=== PATIENT | male | born 1955 | race African-American/Black ===

== ENCOUNTER 2017-04-06 16:20 | Emergency (ER) | payer MEDICARE, MEDICAID ==
[~2017-04-06] VITALS: Ht 170.2 cm; Wt 53.1 kg
[~2017-04-06 16:20] MED LIST: AMLO2.5T PO; CINA30TA PO; CLON0.1T14 PO; CLON0.5T PO; FOLI0.8T23 PO; FOLI1TAB94 PO; PROT946L PO; SEVE800T PO; TAMS-12 PO
--- NOTE | 2017-04-06 16:25 | NUR ---
PT BIB [facility] C/O DIFFUSE PERIUMBILICAL ABD SEVERE PAIN AND DISTENSION TODAY. ABD TENDER TO PALP. PT REPORTS HE THINKS HE NEEDS TO "GET IT DRAINED". RESP APPEARS EVEN UNLABORED, 99% ON RA, HOWEVER PT STATES HE FEELS SHORT OF BREATH. VSS. SKIN WARM NONDIAPHORETIC. DENIES N/V/D. IN ER BED 10.
[2017-04-06 16:43] LABS: BASOPHILS % (AUTO) 0.5 % (0.0-2.0); EOSINOPHILS # (AUTO) 0.1 /CMM (0.0-0.7); EOSINOPHILS % (AUTO) 3.1 % (0.0-6.0); HEMATOCRIT 32 % (39-51); HEMOGLOBIN 10.4 g/dL (13.5-17.5); LYMPHOCYTES # (AUTO) 1.1 /CMM (0.8-4.8); LYMPHOCYTES % (AUTO) 31.3 % (20.0-44.0); MEAN CORPUSCULAR HEMOGLOBIN 31 PG (26.0-33.0); MEAN CORPUSCULAR HGB CONC 32 g/dl (31.0-36.0); MEAN CORPUSCULAR VOLUME 96 fL (80-96); MONOCYTES # (AUTO) 0.4 /CMM (0.1-1.30); MONOCYTES % (AUTO) 11.5 % (2.0-12.0); NEUTROPHILS % (AUTO) 53.6 % (43.0-81.0); PLATELET COUNT (AUTO) 84 /CMM (150-450); RDW COEFFICIENT OF VARIATION 20.1 (11.5-15.0); RED BLOOD CELL COUNT(AUTO) 3.37 MIL/uL (4.5-6.0); WHITE BLOOD COUNT (AUTO) 3.6 K/uL (4.3-11.0)
[2017-04-06 17:05] LABS: INR 1.18 (0.87-1.13); PROTHROMBIN TIME 12.4 SECS (9.5-12.7)
[2017-04-06 17:11] LABS: ALBUMIN 3.2 g/dL (3.4-5.0); BILIRUBIN,DIRECT 0.2 mg/dL (0.0-0.2); BILIRUBIN,TOTAL 0.7 mg/dL (0.2-1.0); CALCIUM, SERUM 8.9 mg/dL (8.5-10.1); CREATININE 4.6 mg/dL (0.6-1.3); POTASSIUM 4.3 mmol/L (3.5-5.1); TOTAL PROTEIN, SERUM 7.6 g/dL (6.4-8.2)
[2017-04-06 17:25] LABS: EOSINOPHILS % (MANUAL) 4 % (0-4); LYMPHOCYTES % (MANUAL) 34 % (16-48); MONOCYTES % (MANUAL) 9 % (0-11.0); NEUTROPHILS % (MANUAL) 53 (42-76)
[2017-04-06] MEDS ORDERED: ONDANSETRON 4 MG TAB.RAPDIS SL ONE (17:30)
[2017-04-06] MEDS ORDERED: MORPHINE SULFATE INJ 4 MG/ML DISP.SYRIN ONE ×2 (17:30→19:10)
[2017-04-06] MEDS ORDERED: ONDANSETRON 4 MG TAB.RAPDIS ONE (17:30)
[2017-04-06] MEDS ORDERED: MORPHINE SULFATE INJ 2 MG/ML DISP.SYRIN IM ONE ×2 (17:30→19:00)
--- NOTE | 2017-04-06 18:16 | NUR ---
RESTING QUIETLY, NAD NOTED. REPORT GIVEN TO ESTELA SERNA FOR AGUSTIN
[2017-04-06] MEDS ORDERED: DEXT15DR6 EACHEYE (18:58)
--- NOTE | 2017-04-06 19:30 | NUR ---
Patient discharged to home in stable condition. Written and verbal after care instructions given. Patient verbalizes understanding of instruction. IV removed. Catheter intact and site benign. Pressure and 4x4 applied to site. No bleeding noted. nad noted upon discharge, will follow up with pmd
[2017-04-06 19:31] VITALS: BP 145/92
== END 2017-04-06 19:31 | disposition home or self-care (01) ==
LOC: ER 16:24
DX: I12.0 Hypertensive chronic kidney disease with stage 5 chronic kidney disease or end stage renal disease (principal); N18.6 End stage renal disease; E11.22 Type 2 diabetes mellitus with diabetic chronic kidney disease; D61.818 Other pancytopenia; R16.0 Hepatomegaly, not elsewhere classified; R18.8 Other ascites; R60.9 Edema, unspecified; I50.9 Heart failure, unspecified; I48.91 Unspecified atrial fibrillation; I05.0 Rheumatic mitral stenosis; Z99.2 Dependence on renal dialysis; J44.9 Chronic obstructive pulmonary disease, unspecified; B19.20 Unspecified viral hepatitis C without hepatic coma; D64.9 Anemia, unspecified; Z94.0 Kidney transplant status; Z90.49 Acquired absence of other specified parts of digestive tract
CPT/HCPCS: 36415; 80048-TC; 80076-TC; 83690-TC; 85025-TC; 85730-TC; A4606; J2270; Q0162; Z7610

== ENCOUNTER 2017-07-10 11:22 | Inpatient (IN) | payer MEDICARE, MEDICAID ==
[~2017-07-10] VITALS: Ht 162.6 cm; Wt 49.4 kg
[2017-07-10] VITALS (15 sets, daily range): BP systolic 58–182; BP diastolic 26–146
[~2017-07-10 11:22] MED LIST changes: +DEXT15DR6 EACHEYE
--- NOTE | 2017-07-10 11:50 | NUR ---
PATIENT PRESENTS TO ER STATING HE DOESNT FEEL WELL, UNABLE TO FINISH HD. PATIENT IS A/OX 4. BREATHING EVEN AND UNLABORED. NO SOB. BP ELEVATED UPON TRIAGE. SAFETY AND COMFORT MEASURES IN PLACE. AWAITING MD ORDERS.
--- NOTE | 2017-07-10 12:00 | NUR ---
NEW IV STARTED ON RAC, 18 G. BLOOD DRAWN AND SENT TO LAB.
[2017-07-10 12:09] LABS: BASOPHILS % (AUTO) 0.6 % (0.0-2.0); EOSINOPHILS # (AUTO) 0.2 /CMM (0.0-0.7); EOSINOPHILS % (AUTO) 5.1 % (0.0-6.0); HEMATOCRIT 30 % (39-51); HEMOGLOBIN 9.7 g/dL (13.5-17.5); LYMPHOCYTES % (AUTO) 24.3 % (20.0-44.0); MEAN CORPUSCULAR HEMOGLOBIN 28 PG (26.0-33.0); MEAN CORPUSCULAR HGB CONC 32 g/dl (31.0-36.0); MEAN CORPUSCULAR VOLUME 87 fL (80-96); MONOCYTES # (AUTO) 0.4 /CMM (0.1-1.30); MONOCYTES % (AUTO) 9.6 % (2.0-12.0); NEUTROPHILS # (AUTO) 2.4 /CMM (1.8-8.9); NEUTROPHILS % (AUTO) 60.4 % (43.0-81.0); PLATELET COUNT (AUTO) 119 /CMM (150-450); RDW COEFFICIENT OF VARIATION 17.4 (11.5-15.0); RED BLOOD CELL COUNT(AUTO) 3.44 MIL/uL (4.5-6.0)
[2017-07-10 12:18] LABS: CALCIUM, SERUM 9.9 mg/dL (8.5-10.1); POTASSIUM 5.1 mmol/L (3.5-5.1)
[2017-07-10 12:22] LABS: INR 1.25 (0.87-1.13); PROTHROMBIN TIME 13.1 SECS (9.5-12.7)
[2017-07-10 12:24] LABS: ALBUMIN 2.9 g/dL (3.4-5.0); BILIRUBIN,DIRECT 0.3 mg/dL (0.0-0.2); BILIRUBIN,TOTAL 0.7 mg/dL (0.2-1.0); TOTAL PROTEIN, SERUM 7.5 g/dL (6.4-8.2)
[2017-07-10 12:26] LABS: TROPONIN I 0.112 ng/mL (0.00-0.056)
--- NOTE | 2017-07-10 12:32 | NUR ---
PATIENT DOES NOT PRODUCE URINE D/T CKD/HD. INFORMED UNABLE TO OBTAINED URINALYSIS.
[2017-07-10 12:42] LABS: PARTIAL THROMBOPLASTIN TIME > 170 SEC (23-34)
--- NOTE | 2017-07-10 12:46 | NUR ---
CALLED [facility], PAGED DR BARRIENTOS, ON THE PHONE WITH DR. MCGHEE.
[2017-07-10] MEDS ORDERED: ASPIRIN 325 MG TABLET ONE (12:58)
[2017-07-10] MEDS ORDERED: ASPIRIN 325 MG TABLET PO ONE (13:00)
--- NOTE | 2017-07-10 13:03 | NUR ---
ICU 261
[2017-07-10] MEDS ORDERED: GABA-532 PO (13:04)
[2017-07-10] MEDS ORDERED: AMLO10TA2 PO (13:04)
[2017-07-10] MEDS ORDERED: PRAV10TA40 PO (13:04)
[2017-07-10] MEDS ORDERED: CARV3.122 PO (13:04)
[2017-07-10] MEDS ORDERED: CINA90TA PO (13:04)
[2017-07-10] MEDS ORDERED: NITROGLYCERIN 0.4 MG/TAB BOTTLE SL PRN (13:30)
[2017-07-10] MEDS ORDERED: HEPARIN INFUSION/D5W 500 ML IV PRN (13:30)
[2017-07-10] MEDS ORDERED: DOCUSATE SODIUM 100 MG CAPSULE PO PRN (13:30)
[2017-07-10] MEDS ORDERED: MORPHINE SULFATE INJ 2 MG/ML DISP.SYRIN IV PRN (13:30)
[2017-07-10] MEDS ORDERED: METOPROLOL TARTRATE 25 MG TABLET PO SCH (13:30)
[2017-07-10] MEDS ORDERED: LORAZEPAM 1 MG TABLET PO PRN (13:30)
[2017-07-10] MEDS ORDERED: MORPHINE SULFATE INJ 4 MG/ML DISP.SYRIN IV PRN (14:00)
[2017-07-10] MEDS ORDERED: CINACALCET HCL 30 MG TABLET PO SCH (14:00)
--- NOTE | 2017-07-10 14:06 | NUR ---
REPORT GIVEN TO RN, JOSE FOR ADMISSION.
[2017-07-10 14:29] LABS: IRON, SERUM 71 ug/dl (50-175); TOTAL IRON BINDING CAPACITY 191 ug/dl (250-450)
--- NOTE | 2017-07-10 14:34 | NUR ---
PATIENT TRANSPORTED TO [facility] [place][note 3] VIA ACLS PROTOCOL. RNSAJI TO PROVIDE AGUSTIN.
--- NOTE | 2017-07-10 14:40 | NUR ---
ICU/RN: PT RECEIVED A&OX4, ANXIOUS, BREATHING EVEN AND UNLABORED, NO FACIAL GRIMACING, COOPERATIVE, HOWEVER STATES "I CAN'T BREATHE, CAN YOU GIVE ME SOMETHING TO RELAX AND FOR PAIN?" PT DENIES CP, C/O 8/10 POSTERIOR NECK PAIN AND STATES "I WANT MORPHINE, THAT'S WHAT I TAKE WHENEVER IM IN THE HOSPITAL." ALTERNATIVE PAIN MANAGEMENT MEASURES PROVIDED AND EDUCATION GIVEN. PT PRESENTS WITH OLD LFA AV SHUNT; R FA #18 HL FLUSHED PATENT AND INTACT, R CW HD CATH, DRESSING C/D/I. SCABS NOTED ON BILAT LOWER EXT. ORIENTED PT TO UNIT, VERBALIZED UNDERSTANDING. WILL CONT TO MONITOR PT.
--- NOTE | 2017-07-10 15:11 | NUR ---
I TEXTED DR ESCOBEDO REGARDING HEPARIN ORDERS WITH PTT > 170 SECS ON ADMIT, PLATELET COUNT 119 AND HGB 9 AND NO CHEST PAIN WITH VERY MINIMAL TROP BUMP WITH CC "I WANT MORPHINE TO RELAX, AND NOTHING ELSE"
--- NOTE | 2017-07-10 15:28 | NUR ---
WILL RECHECK PTT AND TROP AT 1700 AND START HEPARIN BASED ON PTT RESULT
[2017-07-10] MEDS ORDERED: ACETAMINOPHEN 325 MG TABLET PO PRN (15:30)
[2017-07-10] MEDS ORDERED: SEVELAMER CARBONATE 800 MG TABLET PO SCH (18:00)
--- NOTE | 2017-07-10 18:00 | NUR ---
ICU/RN: ASSISTED PT WITH DINNER, ADAMANT TO SIT AT EDGE OF BED FOR MEAL, HOWEVER PT C/O SOB WITH EXERTION. REFUSES TO WEAR PULSE OX. EDUCATED ON PROTOCOL BUT AGREES ONLY TO HAVE PULSE OX "JUST REAL QUICK TO SEE HOW WELL IM DOING THEN TAKE IT OFF." O2 SAT AT 100% ON 2L/MIN VIA NC. ASSISTED BACK TO BED. PER PT, "I'LL JUST FINISH MY DINNER LATER."
[2017-07-10] MEDS ORDERED: HEPARIN SODIUM, PORCINE 5000 UNITS/1 ML VIAL IV ONE (18:30)
--- NOTE | 2017-07-10 19:15 | NUR ---
ICU/RN: PT IN BED, NO DISTRESS NOTED, HEPARIN DRIP INFUSING ORDERED. REFUSING TO WEAR PT GOWN, STATES "IT'S HOT." CARE ENDORSED TO PM RN FOR AGUSTIN.
--- NOTE | 2017-07-10 19:55 | NUR ---
LABELING MACHINE OPERATOR. INITIAL ASSESSMENT. RECEIVED THE PT REST ON THE BED. AWAKE, ALERT, FOLLOW COMMANDS. ASSURANCE ENGINEER SHOWING NSR. OXYGEN 2L VIA NASAL CANNULA SAT 98%. NO ACUTE DISTRESS NOTED. IV RT FA 18G. RT CHEST HD CATH. HEPARIN 750U/H. HOB ELEVATED. TURN AND REPOSITION PT INDEPENDENT. WILL CONTINUE TO MONITOR VITALS.
--- NOTE | 2017-07-10 20:30 | NUR ---
I CAME TO ASSESS THE PATIENT AT 2009, HE COMPLAINED SHORTNESS OF BREATH AND CHEST PAIN, WE ORDERED STAT ABG AND STAT 12 EKG, THEN I CALLED RT FOR ABG AND EKG AT 2009 TO 4565, THEN 2011 AND 2013 TO RT CELL, THEN 2014 TO 4565, THEN 2017 TO RT CELL, THEN 2019 TO 4565, THEN 2020 TO RT CELL, NO RESPONSES, THEN WE CALLED NURSING PHERESIS SPECIALIST, WE ALSO ASKED RT MILAGROS TO HELP, HE SAID HE WAS IN ER. THEN , THEN PT HAVE NAUSEA, WE CALLED AGAIN TO THE RT AND DOCTOR, THEN THE PT STARTED BECOMING UNRESPONSIVE AT 2029, THEN WE ACTIVATED CODE BLUE. DURING CODE BLUE, DR GONZALEZ INTUBATED THE PATIENT, AND WE ORDERED STAT LABS, BMP, MAG, PHOS, AND CHEST X RAY.
[2017-07-10] MEDS ORDERED: CALCIUM CHLORIDE 1,000 MG/10 ML DISP.SYRIN ONE (20:51)
[2017-07-10] MEDS ORDERED: SUCCINYLCHOLINE CHLORIDE 20 MG/ML VIAL IV ONE (21:05)
[2017-07-10] MEDS ORDERED: CALCIUM CHLORIDE 1,000 MG/10 ML DISP.SYRIN IV ONE (21:05)
[2017-07-10] MEDS ORDERED: SODIUM BICARBONATE SYR 50 MEQ/50 ML DISP.SYRIN IV ONE (21:05)
[2017-07-10] MEDS ORDERED: Magnesium 1 GM/2 ML VIAL IV ONE (21:05)
[2017-07-10] MEDS ORDERED: AMIODARONE 150 MG/3 ML VIAL IV ONE (21:05)
[2017-07-10] MEDS ORDERED: EPINEPHRINE (1:10,000) SYRINGE 1 MG/10 ML DISP.SYRIN IVP ONE (21:05)
[2017-07-10] MEDS ORDERED: ATROPINE SULFATE 1 MG/10 ML DISP.SYRIN IV ONE (21:05)
[2017-07-10] MEDS ORDERED: ETOMIDATE 2 MG/ML VIAL IV ONE (21:05)
--- NOTE | 2017-07-10 21:06 | NUR ---
CODE UNSUCCESSFUL AT 2105.
[2017-07-10 21:21] LABS: CALCIUM, SERUM 11.2 mg/dL (8.5-10.1); MAGNESIUM 2.7 mg/dL (1.8-2.4); PHOSPHORUS 5.2 mg/dL (2.5-4.9)
[2017-07-10 21:30] LABS: CREATININE 7.8 mg/dL (0.6-1.3); POTASSIUM 6.5 mmol/L (3.5-5.1)
--- NOTE | 2017-07-10 21:30 | NUR ---
CALLED [facility] SPOKE TO HAKEEM
--- NOTE | 2017-07-10 21:35 | NUR ---
ICU/RN-SPOKE TO DAUGHTER BHUMIKA GUTIERREZ BY PHONE REGARDING PT. EXPIRATION AT 2105, DAUGHTER VERY UPSET, SPOKE TO THE OF DAUGHTER AT LENGTH REGARDING PT. PASSING. WHO WILL SPEAK TO THE WHO AT THE MOMENT IS VERY UPSET.
[2017-07-10] MEDS ORDERED: SIMVASTATIN 20 MG TABLET PO SCH (22:00)
[2017-07-10] MEDS ORDERED: TAMSULOSIN 0.4 MG CAP.SR.24H PO SCH (22:00)
[2017-07-10] MEDS ORDERED: GABAPENTIN 100 MG CAPSULE PO SCH (22:00)
--- NOTE | 2017-07-10 22:00 | NUR ---
CALLED [facility] SPOKE TO FELIX, SHE SAID RELEASE THE BODY
--- NOTE | 2017-07-10 22:30 | NUR ---
FAMILY AT BEDSIDE, POST MORTEM CARE GIVEN, FAMILY TO RELEASE THE BODY, SEND THE BODY TO [facility]. BELONGINGS SEND TO HOME. {DAUGHTER BHUMIKA}
--- NOTE | 2017-07-11 00:58 | NUR ---
LOCATE TECHNICIAN SEND THE BODY [facility] AT 0051
[2017-07-11] MEDS ORDERED: ASPIRIN 81 MG TAB.CHEW PO SCH (09:00)
[2017-07-11] MEDS ORDERED: VIT B CMPLX 3/FA/VIT C/BIOTIN 1 TAB TABLET PO SCH (09:00)
[2017-07-11] MEDS ORDERED: AMLODIPINE BESYLATE 10 MG TABLET PO SCH (09:00)
== END 2017-07-10 21:06 | disposition expired | DRG 291 ==
LOC: ER 11:26 → ICU 13:25
PROVIDERS: ADMIT Internal Medicine; ATTEND Internal Medicine
DX: I13.2 Hypertensive heart and chronic kidney disease with heart failure and with stage 5 chronic kidney disease, or end stage renal disease (principal); E43 Unspecified severe protein-calorie malnutrition; N17.9 Acute kidney failure, unspecified; N18.6 End stage renal disease; R18.8 Other ascites; T86.12 Kidney transplant failure; J44.0 Chronic obstructive pulmonary disease with (acute) lower respiratory infection; I31.9 Disease of pericardium, unspecified; I50.23 Acute on chronic systolic (congestive) heart failure; I24.9 Acute ischemic heart disease, unspecified; K86.1 Other chronic pancreatitis; D69.6 Thrombocytopenia, unspecified; E11.22 Type 2 diabetes mellitus with diabetic chronic kidney disease; I48.91 Unspecified atrial fibrillation; Z99.2 Dependence on renal dialysis; Z79.84 Long term (current) use of oral hypoglycemic drugs; Z79.4 Long term (current) use of insulin; J44.9 Chronic obstructive pulmonary disease, unspecified; I05.0 Rheumatic mitral stenosis; Z79.899 Other long term (current) drug therapy; N40.0 Benign prostatic hyperplasia without lower urinary tract symptoms; K21.9 Gastro-esophageal reflux disease without esophagitis; I45.10 Unspecified right bundle-branch block; I25.10 Atherosclerotic heart disease of native coronary artery without angina pectoris; B19.20 Unspecified viral hepatitis C without hepatic coma; K27.9 Peptic ulcer, site unspecified, unspecified as acute or chronic, without hemorrhage or perforation; D63.8 Anemia in other chronic diseases classified elsewhere
CPT/HCPCS: 36415; 71010-TC; 80048-TC; 80076-TC; 83540-TC; 83605-TC; 83735-TC; 84100-TC; 84484-TC; 85025-TC; 85730-TC; 87040-TC; A4606; J0171; J0282; J0330; J0461; J1644; J2270; J3475; J3490; J7030; J7070; Z7610